=== PATIENT | male | born 1995 | race Caucasian/White ===

== ENCOUNTER 2019-12-14 22:49 | Emergency (ER) | payer BC ==
[2019-12-14 22:54] VITALS: BP 139/81; PULSE 62; RESP 18; TEMP 98
[2019-12-14] MEDS ORDERED: DIPH,PERTUS(ACELL)TETVAC-LF 0.5 ML VIAL IM ONE (23:13)
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
== END 2019-12-14 23:40 | disposition home or self-care (01) ==
LOC: EC 22:49
DX: T23.032A Burn of unspecified degree of multiple left fingers (nail), not including thumb, initial encounter (principal); Z23 Encounter for immunization; X19.XXXA Contact with other heat and hot substances, initial encounter; Y93.G3 Activity, cooking and baking
CPT/HCPCS: 90471; 90715; 99283

== ENCOUNTER 2020-09-04 08:35 | Day surgery (SDC) | payer BC ==
[2020-08-31 10:30] VITALS: BMI 27.0
[~2020-09-04 08:35] MED LIST: LACTATED RINGERS 1,000 ML IV SCH; LIDOCAINE 1% (10MG/ML) FOR IV START INTRADERMA PRN
[2020-09-04 09:03] VITALS: RESP 16; TEMP 98
[2020-09-04] MEDS ORDERED: PROPOFOL 10 MG/ML 20 ML VIAL IV ONE (09:42)
--- NOTE | 2020-09-04 09:46 | P.GSHP ---
History of Present Illness H&P Date: 09/04/20 Chief Complaint: Rectal bleeding 24-year-old male with recent history of rectal bleeding over the last 3 months. Patient with family history of colon cancer in his great-grandmother and his cousin. Mild perianal discomfort with bowel movements. No change in bowel habits. No previous endoscopy. Usually one bowel movement per day. Past Medical History Past Medical History: No Reported History Additional Past Medical History / Comment(s): bleeding and clots with stools for 3 months History of Any Multi-Drug Resistant Organisms: None Reported Past Surgical History: No Surgical Hx Reported Additional Past Surgical History / Comment(s): mary tubes placed in ears, arm surgery Past Anesthesia/Blood Transfusion Reactions: Family History of Problems w/ Anesthesia, Motion Sickness, Postoperative Nausea & Vomiting (PONV) Additional Past Anesthesia/Blood Transfusion Reaction / Comment(s): dad hx PONV w/ colonoscopy Smoking Status: Never smoker - Past Family History Mother Additional Family Medical History / Comment(s): niece at age 38 colon CA-stg 4 Medications and Allergies Home Medications Medication Instructions Recorded Confirmed Type No Known Home Medications 08/31/20 09/04/20 History Allergies Allergy/AdvReac Type Severity Reaction Status Date / Time No Known Allergies Allergy Verified 09/04/20 08:58 Surgical - Exam Vital Signs Temp Pulse Resp BP Pulse Ox 98 F 90 16 135/69 97 09/04/20 08:58 09/04/20 08:58 09/04/20 08:58 09/04/20 08:58 09/04/20 08:58 Physical exam: General: Well-developed, well-nourished HEENT: Normocephalic, sclerae nonicteric Abdomen: Nontender, nondistended Extremities: No edema Neuro: Alert and oriented Assessment and Plan (1) Rectal bleeding Narrative/Plan: Will proceed with colonoscopy Current Visit: Yes Status: Acute Code(s): K62.5 - HEMORRHAGE OF ANUS AND RECTUM SNOMED Code(s): 26966622
--- NOTE | 2020-09-04 10:18 | P.PCN ---
Date of Procedure: 09/04/20 Procedure(s) Performed: PREOPERATIVE DIAGNOSIS: Rectal bleeding POSTOPERATIVE DIAGNOSIS: Normal exam PROCEDURE: Colonoscopy ANESTHESIA: MAC SURGEON: Allen Bee M.D. SPECIMENS: None ENDOSCOPIC PROCEDURE: The patient was placed on the endoscopy table in the left decubitus position. The Olympus colonoscope was inserted into the anus and passed under direct visualization to the base of the cecum. The appendiceal orifice was visualized. From that point the scope was slowly withdrawn inspecting all surfaces carefully. There were no neoplastic inflammatory or polypoid lesions throughout the cecum, ascending, transverse, descending, sigmoid and rectum. There was no visible diverticulosis noted. Retroflexion at the anus was normal. No visible hemorrhoidal disease of significance or anal fissures were noted. Digital rectal examination was normal. The patient was taken to the recovery room in stable condition per anesthesia guidelines. RECOMMENDATIONS: Resume diet. Monitor for recurrent bleeding.
[2020-09-04 10:40] VITALS: BP 126/78; PULSE 77
== END 2020-09-04 11:46 | disposition home or self-care (01) ==
LOC: ORWHC2ENDO 08:35
PROVIDERS: ATTEND Surgery
DX: K62.5 Hemorrhage of anus and rectum (principal); K62.89 Other specified diseases of anus and rectum; Z98.890 Other specified postprocedural states; Z80.0 Family history of malignant neoplasm of digestive organs
CPT/HCPCS: 45378; J2704